=== PATIENT | male | born 1940 | race Caucasian/White ===

== ENCOUNTER 2017-02-04 07:19 | Day surgery (SDC) | payer MEDICARE, OTHER ==
--- NOTE | 2017-01-31 11:28 | HP ---
PATIENT: ANURAG ARBOLEDA MEDICAL RECORD: [id number] ACCOUNT: [id number] LOCATION:D.OPS : 40 ADMISSION DATE: 02/04/17 HISTORY AND PHYSICAL EXAMINATION ANURAG Singleton (76yo, M) ID# [id number]. Date/Time01/29/2017 01:[id number] 1940ervice Dept.NPP_[facility] ClinicProviderEDJOEY HILARIO MDInsuranceMed Primary[place] Insurance # : [id number] Referring Provider Name : YU MOSER Employer Name : RETIRED Med Secondary: FOR LIFE ( - MEDICARE SUPPLEMENT) Insurance # : [id number] Referring Provider Name : YU MOSER Employer Name : RETIRED Prescription: ESI1 - Member is eligible. Chief Complaint pulse generator end-of-life, Coronary artery disease, PVD - peripheral vascular disease s/p L art w int 09/19/15 s/p R popliteal endarterectomy 07/30/15 s/p PPM 12/21/07 s/p trach 06/09/03 s/p CABG 05/24/03 one year f/u and eval for gen change Patient's Care Team Referring Provider (): YU MOSER: [address] [place] [address], , Other: [facility]: [address] [address], , Patient's Pharmacies [facility] 590 (ERX): [address] [place] [id number], , Vitals BP:120/80 sitting R arm 01/29/2017 01:34 pmBP Cuff Size:adult 01/29/2017 01:34 pmHR:68,reg 01/29/2017 01:34 pmHt:5 ft 4 in 01/29/2017 01:35 pmWt:180 lbs 01/29/2017 01:35 pmNotes:no complaints except SOB, thinks the pulse generator change will fix him up 01/29/2017 01:35 pmBMI:30.9 01/29/2017 01:35 pmAllergies Reviewed Allergies NKDASome allergies listed in Documents: #[id number], #[id number] could not be added to this patient's chart. Please review these documents and add these allergies to the patient's chart manually as needed.Medications Reviewed Medications alfuzosin ER 10 mg tablet,extended release 24 hr Take 1 tablet(s) every day by oral route in the evening.12/29/16 filledMEDCOaspirin 81mg cgpzmtjo83/14/11 enteredCindy Brownatorvastatin 20 mg tablet Take 1 tablet(s) every day by oral route.12/19/16 filledMEDCOclopidogrel 75 mg tablet Take 1 tablet(s) every day by oral route in the morning.12/25/16 filledMEDCOdiclofenac sodium 75 mg tablet,delayed release Take 1 tablet(s) twice a day by oral route.07/25/15 enteredKathy Wilsonfurosemide 40 mg fafvfn34/24/17 filledMEDCOHYDROcodone 5 mg-acetaminophen 325 mg tablet Take 1 tablet(s) every 4-6 hours by oral route as needed.12/22/16 filledMEDCOHYDROcodone 7.5 mg-acetaminophen 325 mg ljyczb12/25/17 HISTORY AND PHYSICAL [id number] ANURAG ARBOLEDA filledMEDCOhydrOXYzine HCl 25 mg tablet Take 1 tablet(s) every day by oral route.03/27/11 enteredCindy Brownindapamide 1.25 mg yxpsku85/08/17 filledMEDCOIron (ferrous sulfate) 325 mg (65 mg iron) tablet Take 1 tablet(s) every day by oral route in the evening.01/17/16 enteredCarnicole Hightower-Con M10 mEq tablet,extended twuyvzh31/24/17 filledMEDCOlevothyroxine 50mcg rwvsywfu49/14/11 enteredCindy Brownlevothyroxine 50 mcg qtvbin01/23/17 filledMEDCOlosartan 100 mg eiylev58/08/17 filledMEDCOlosartan 50 mg /15/16 filledMEDCOmethylPREDNISolone 4 mg tablets in a dose pack01/06/17 filledMEDCOmetoprolol succinate ER 50 mg tablet,extended release 24 hr Take 1 tablet(s) every day by oral route.01/04/17 filledMEDCOmometasone 0.1 % topical cream11/27/16 filledMEDCOmultivitamin qd03/18/11 enteredShannon Karrnabumetone 500 mg cwykiq38/23/17 filledMEDCONexIUM 40 mg capsule,delayed release Take 1 capsule(s) every day by oral route.09/12/16 filledMEDCOOcuvite Eye + Multi07/25/15 enteredKathy Wilsonpramipexole 0.125 mg tablet Take 1 tablet(s) every day by oral route in the evening.01/17/16 enteredCarry Shirleypramipexole 0.25 mg gcykpd22/13/17 filledMEDCOtemazepam 15 mg capsule Take 1 capsule(s) every day by oral route at bedtime.12/29/16 filledMEDCO NIAGEN DIETARY SUPPLEMENT, FORSKOLIN DIETARY SUPPLEMENT Vaccines Reviewed Vaccines Some vaccines listed in Documents: #[id number], #[id number] could not be added to this patient's chart. Please review these documents and add these vaccines to the patient's chart manually as needed. 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 Please review these documents and add these problems to the patient's chart manually as needed. Family History Discussed Family History Mother- Coronary arteriosclerosis - previously recorded as CADFather- Coronary arteriosclerosis - previously recorded as CADSocial History Discussed Social History Cardiology Family history of heart disease?: Y Smoking Status: Former smoker Smoker (1 PPW) High Cholesterol: Y High blood pressure: Y Exercise level: Moderate HISTORY AND PHYSICAL [id number] ANURAG ARBOLEDA Overweight: Y Obese: N Diabetes: N General stress level: Low Alcohol intake: None Diet: Regular Occupation: retired Marital status: Advance directive: N Is blood transfusion acceptable in an emergency?: Y Surgical History Reviewed Surgical History Irrigation and debridement, infection - 12/07/2015 Other - 09/19/2015 - left arteriogram with intervention Vascular Surgery - 07/30/2015 - posterior approach R popliteal endarterectomy Other - 12/21/2007 - PPM placement Other - 06/09/2003 - tracheostomy placement CABG - 05/24/2003 Past Medical History Discussed Past Medical History Coronary Artery Disease: Y Heart Disease: Y High Blood Pressure: Y Hyperlipidemia: Y Hypertension: Y Joint Pain or Swelling: Y Notes: HIGH CHOLESTEROL Documents for Discussion N/A Screening None recorded. HPI Dyspnea Reported by patient. Quality: dyspnea; can't catch breath Severity: moderate Onset/Timing: daily Context: with activity Alleviating Factors: rest Aggravating Factors: activity Associated Symptoms: no chest pain; no palpitations; no orthopnea; no PND; no fever; no chills; no wheezing; no dietary indiscretion; no sputum production; no hemoptysis; no weight gain; no dyspepsia Peripheral Vascular Disease Reported by patient. Severity: not limiting Associated Symptoms: no weakness; no numbness; no paresthesias; no skin discoloration; no fever carotid artery disease ROS Patient reports exercise intolerance but reports no fever, no night sweats, no significant weight gain, and no significant weight loss. He reports shortness of breath when walking (up hill) but reports no chest pain, no arm pain on exertion, no HISTORY AND PHYSICAL [id number] ANURAG ARBOLEDA shortness of breath when lying down, no palpitations, and no known heart murmur. He reports no dry eyes, no irritation, and no vision roel nge. He reports no difficulty hearing and no ear pain. He reports no frequent nosebleeds and no nose/sinus problems. He reports no sore throat, no bleeding gums, no snoring, no dry mouth, no mouth ulcers, no oral abnormalities, and no teeth problems. He r e ports no cough, no wheezing, no shortness of breath, and no coughing up blood. He reports no abdominal pain, no vomiting, normal appetite, no diarrhea, not vomiting blood, no nausea, and no constipation. He reports no incontinence, no difficulty urinating , no hematuria, and no increased frequency. He reports no muscle aches, no muscle weakness, no arthralgias/joint pain, no back pain, and no swelling in the extremities. He reports no abnormal mole, no jaundice, and no rashes. He reports no loss of consciou s ness, no weakness, no numbness, no seizures, no dizziness, and no headaches. He reports no depression, no sleep disturbances, feeling safe in relationship, and no alcohol abuse. He reports no fatigue. He reports no swollen glands and no bruising. He repor ts no runny nose, no sinus pressure, no itching, no hives, and no frequent sneezing. ROS as noted in the HPI Physical Exam Patient is a 76-year-old male. Constitutional: General Appearance well nourished and developed and healthy-appearing. Level of Distress NAD. Ambulation ambulating normally. Cardiovascular: Apical Impulse not displaced or no thrill. Heart Auscultation normal s1 and s2; no murmurs, rubs, or gallops; and RRR. Arterial Pulses no abdominal aorta bruits, femoral bruits, or popliteal bruits; popliteal diminished (b) and dorsalis pedis not palpable (b); and 2+ bilateral, carotid 2+ bilateral, and femoral 2+ bilateral. Edema no edema or varicosities. Lungs: Repiratory Effort no dyspnea. Percussion no hyperresonance or dullness or flatness. Auscultation no wheezing, rhonchi, or rales / crackles and breathing sounds normal, good air movement, and CTA except as noted. Abdomen: Bowl Sounds normal. Inspection and Palpation no tenderness, guarding, faisal s, or rebound tenderness and soft and non-distended. Liver non-tender and no hepatomegaly. Spleen non-tender and no splenomegaly. Hernia none palpable. Ears, Nose, Throat: Hearing grossly normal hearing. Nose no external nose lesion. Lips, Teeth, and Gums no mouth or lip ulcers. Oropharynx: moist mucous membranes. Neurologic: Cranial Nerves grossly intact. Reflexes DTRs 2+ bilaterally throughout. Sensation grossly intact. Lymph Nodes: Lymph Nodes no cervical LAD, supraclavicular LAD, axillary LAD, or inguinal LAD. Eyes: Lids and Conjunctivae no discharge or pallor and non-injected. Pupils PERRLA. Cornea grossly intact. EOM EOMI. Lens clear. Sclerae non-icteric. Neck: Neck no masses, enlarged lymph nodes, or carotid bruits and supple and trachea midline. Thyroid no enlargement or nodules and non-tender. Skin: Inspection and Palpation no rash, lesions, ulcers, jaundice, or abnormal nevi. Assessment / Plan sick sinus syndrome pulse generator end-of-life HISTORY AND PHYSICAL [id number] ANURAG ARBOLEDA History of complete heart block 1. Pacemaker pulse generator failure T82.111A: Breakdown (mechanical) of cardiac pulse generator (battery), initial encounter 2. Complete atrioventricular block I44.2: Atrioventricular block, complete HEART BLOCKS: CARE INSTRUCTIONS Return to Office None recorded. MACARIO HILARIO MD at 1128 CC: [id number] DICTATION DATE: 01/29/17 1330 MUSIC PROFESSOR: DM 01/29/17 1534 PRE [facility] [address] [place] [address]
[~2017-02-04] VITALS: Ht 162.6 cm; Wt 85.4 kg
--- NOTE | ~2017-02-04 | OP ---
PATIENT NAME: ANURAG ARBOLEDA MEDICAL RECORD: [id number] :40 LOCATION:D.OPS ADMISSION DATE: SURGEON: MACARIO MESA MD DATE OF OPERATION: 02/04/2017 SURGEON: Macario Mesa MD. ANESTHESIA: General, Dr. Marcum. OPERATION PERFORMED: Pulse generator exchange. PREOPERATIVE DIAGNOSES: Pulse generator end of life, complete heart block. POSTOPERATIVE DIAGNOSES: Pulse generator end of life, complete heart block. INDICATION FOR OPERATION: Complete heart block, pulse generator end of life. FINDINGS OF THE OPERATION: The explanted generator was Medtronic model number VEDR01, serial number [id number]. Newly implanted pulse generator: Medtronic Adapta [id number], serial number [id number]. LEAD ANALYSIS: Atrial lead threshold 0.5 volts, resistance 359 ohms. P-wave 2.4, ventricular lead threshold 0.7 volts, resistance 543 ohms, R-wave none. ESTIMATED BLOOD LOSS: Less than 5 cc. DESCRIPTION OF PROCEDURE: After informed consent, adequate preoperative medication and evaluation, the patient was brought to the operating room, placed on the table in the supine position. After induction of general anesthesia and application of appropriate monitoring devices, the left chest was prepped and draped in a sterile field, utilizing Betadine scrub, alcohol, and Betadine solution. A Betadine-impregnated drape was also used, 1% lidocaine was infiltrated in the previous incision as well as in the pulse generator pocket. An incision was made, carried down to the pocket. The pocket was incised and the device was removed. The pacemaker pocket was revised medially and inferiorly. Hemostasis was assured. The leads were then removed from the explanted device and placed in the new device. Pacemaker fired and sensed appropriately. The device was tested. The device was placed back in the pocket. The pocket was irrigated. Instrument count and sponge count were correct times 2. Pocket was closed in layers utilizing 3-0 Vicryl on deep subcutaneous tissue, 3-0 Vicryl on superficial subcutaneous tissues. Skin approximated with 5-0 subcuticular Monocryl. Sterile dressings were applied. The patient tolerated the procedure well and was transferred to postanesthesia recovery in satisfactory condition. TRANSINT:[id number] Voice Confirmation ID: [id number] DOCUMENT ID: [id number] OPERATIVE REPORT [id number] ANURAG ARBOLEDA EDWARD MD CC: [id number] DICTATION DATE: 02/04/17 1217 DIRECTOR ORACLE DATABASE: 02/04/179 [facility] 02/04/17 [id number] [place] [address]
[~2017-02-04 07:19] MED LIST: ASPIRIN81 MG PO; ATARAX 25 MG TA25 MG PO; FERROUS SULFAT325 MG PO; FIBER GUMMIES PO; FLOMAX0.4 MG PO; FORSKOLIN PO; HYDROCODON-ACE1 EAC7 PO; HYDROCODONE-APA1 TAB PO; KLOR-CON 1010 MEQ PO; LASIX40 MG PO; LIPITOR20 MG PO; MIRAPEX0.125 MG PO; MIRAPEX0.75 MG; MULTIPLE VITAMI1 TA1 PO; NEXIUM40 MG PO; OCUVITE TABLET1 TA1 PO; PLAVIX75 MG PO; RESTORIL15 MG PO; SYNTHROID50 MCG PO; TOPROL XL50 MG PO; UROXATRAL10 MG PO; VOLTAREN75 MG PO; [UNRECOGNIZED DRUG - OTHER] PO; [UNRECOGNIZED DRUG - OTHER] PO
[2017-02-04 08:13] LABS: HEMATOCRIT 45.6 % (42.0-54.0); HEMOGLOBIN 15.3 g/dL (13.5-17.5); MCH 32.4 pg (26.0-34.0); MCHC 33.6 g/dL (31.0-37.0); MCV 96.6 fL (80.0-100.0); MEAN PLATELET VOLUME 9.8 fL (7.4-10.4); RBC 4.72 10x6/uL (4.20-6.10); WBC 6.5 10x3/uL (4.8-10.8)
[2017-02-04] MEDS ORDERED: RELAFEN500 MG PO (08:29)
[2017-02-04] MEDS ORDERED: VITAMIN B-122500 MCG PO (08:30)
[2017-02-04] MEDS ORDERED: COZAAR100 MG PO (08:31)
[2017-02-04] MEDS ORDERED: LOZOL1.25 MG PO (08:32)
[2017-02-04] MEDS ORDERED: HYDROCODON-ACE1 EAC7 PO (08:34)
[2017-02-04 08:37] LABS: ANION GAP 12.4 mmol/L (8-16); CALCIUM 9.3 mg/dL (8.5-10.1); CARBON DIOXIDE 29.5 mmol/L (21.0-32.0); CREATININE - SERUM 1.9 mg/dL (0.6-1.3); POTASSIUM - SERUM 3.9 mmol/L (3.5-5.1)
[2017-02-04] MEDS ORDERED: K-DUR20 MEQ PO (08:40)
[2017-02-04] MEDS ORDERED: LASIX40 MG PO (08:41)
[2017-02-04] MEDS ORDERED: POTASSIUM CHLO10 ME1 PO (08:42)
[2017-02-04 08:59] VITALS: BP 139/84; Ht 162.6 cm; Wt 85.4 kg
[2017-02-04 09:06] LABS: APTT 27.7 SECONDS (22.8-39.4); INR 1.01 (0.85-1.17); PROTIME 13.2 SECONDS (11.6-15.0)
== END 2017-02-04 13:55 | disposition home or self-care (01) ==
LOC: D.OPS 07:19
PROVIDERS: Internal Medicine Cardiovascular Disease
DX: Z45.010 Encounter for checking and testing of cardiac pacemaker pulse generator [battery] (principal); I44.2 Atrioventricular block, complete

== ENCOUNTER 2017-02-04 21:31 | Emergency (ER) | payer MEDICARE, OTHER ==
[2017-02-04 08:59] VITALS: BMI 32.3
[~2017-02-04 21:31] MED LIST changes: +COZAAR100 MG PO; +K-DUR20 MEQ PO; +LOZOL1.25 MG PO; +POTASSIUM CHLO10 ME1 PO; +RELAFEN500 MG PO; +VITAMIN B-122500 MCG PO
[2017-02-04 23:35] LABS: BASOPHILS 0.3 % (0-2); EOSINOPHILS 1.6 % (0-7); HEMATOCRIT 42.5 % (42.0-54.0); HEMOGLOBIN 14.1 g/dL (13.5-17.5); IMMATURE GRANULOCYTES 0.9 % (0-5); LYMPHOCYTES 11.4 % (15-50); MCH 32.1 pg (26.0-34.0); MCHC 33.2 g/dL (31.0-37.0); MCV 96.8 fL (80.0-100.0); MEAN PLATELET VOLUME 9.8 fL (7.4-10.4); MONOCYTES 8.5 % (2-11); NEUTROPHILS 77.3 % (40-80); PLATELET COUNT 165 10x3/uL (130-400); RBC 4.39 10x6/uL (4.20-6.10); WBC 6.9 10x3/uL (4.8-10.8)
[2017-02-04 23:44] LABS: ALBUMIN 3.6 g/dL (3.4-5.0); ANION GAP 11.1 mmol/L (8-16); BILIRUBIN - TOTAL 0.3 mg/dL (0.2-1.3); CALCIUM 8.7 mg/dL (8.5-10.1); CARBON DIOXIDE 29.3 mmol/L (21.0-32.0); CREATININE - SERUM 1.8 mg/dL (0.6-1.3); POTASSIUM - SERUM 4.4 mmol/L (3.5-5.1); PROTEIN - SERUM 6.6 g/dL (6.4-8.2)
== END 2017-02-05 00:35 | disposition home or self-care (01) ==
LOC: D.ER 21:31
PROVIDERS: Emergency Medicine
DX: L76.22 Postprocedural hemorrhage of skin and subcutaneous tissue following other procedure (principal); I10 Essential (primary) hypertension; E03.9 Hypothyroidism, unspecified; E78.5 Hyperlipidemia, unspecified

== ENCOUNTER 2017-12-25 13:14 | Emergency (ER) | payer MEDICARE, OTHER | END 2017-12-25 15:09 | disposition home or self-care (01) | LOC: D.ER 13:14 | DX: L03.011 Cellulitis of right finger (principal); I10 Essential (primary) hypertension; E03.9 Hypothyroidism, unspecified ==

== ENCOUNTER → 2018-12-13 12:51 | Outpatient (CLI) | payer MEDICARE, OTHER ==
--- NOTE | ~2018-12-13 | EC ---
PATIENT:ANURAG ARBOLEDA DATE OF SERVICE: 12/13/18 SEX: M MEDICAL RECORD: [id number] DATE OF : 40 LOCATION:[facility] AGE OF PATIENT: 78 ADMISSION DATE: 12/13/18 REFERRING PHYSICIAN: INTERPRETING PHYSICIAN: SOHA MICHEL MD ECHOCARDIOGRAM REPORT ECHO CHARGES 4 ECHO COMPLETE Date: 12/13/18 CLINICAL DIAGNOSIS: CAD ECHOCARDIOGRAPHIC MEASUREMENTS (adult normal given) AC root (d.<3.7cm) 3.4 cm LV Septum d (<1.2 cm> 1.6 cm Valve Excursion 1.6 cm LV Septum (systole) 1.8 cm Left Atria (s.<4.0cm> 4.0 cm LVPW d(<1.2cm) 1.5 cm RV (d.<2.3cm) 4.2 cm LVPW (sytole) 1.8 cm LV diastole(<5.6CM) 5.8 cm MV E-F(>70mm/sec) cm LV systole 4.8 cm LVOT Diameter 1.6 cm MV exc.(>10mm) 1.2 cm Est.ejection fraction (50-75%) % DOPPLER: LVIT cm/sec A 92.0 cm/sec E 65.0 cm/sec LA cm/sec RVSP 37 mmHg LVOT 75 cm/sec AOP1/2T m/s Asc. Ao 116 cm/sec RVOT 56 cm/sec RA cm/sec PA 160 cm/sec AV Gradient Peak 5.40 mmHg AV Mean 3.10 mmHg AV Area 1.4 cm MV Gradient Peak 3.62 mmHg MV Mean 1.30 mmHg MV Area cm COMMENTS: [employer] Machine Operator: Julian WATERS Animal Chiropractor: 1 Dr. Michel TAPE# PACS Pericardial Effusion N DATE OF SERVICE: 12/13/2018 ECHOCARDIOGRAM FINDINGS: 1. Left ventricular chamber size is within normal limits. Left ventricular systolic function is normal. Overall ejection fraction estimated at 55% to 60%. 2. Left atrium, right atrium, and right ventricle chamber sizes are upper limits of normal to mildly dilated left atrium measures 4.0 cm. 3. Valvular structures have normal structure and motion. ECHOCARDIOGRAM REPORT [id number] ANURAG ARBOLEDA 4. Doppler interrogation reveals mild mitral regurgitation, mild tricuspid regurgitation, no other valvular insufficiency or stenosis. 5. No evidence of pericardial effusion or left ventricular thrombus. TRANSINT:[id number] Voice Confirmation ID: [id number] DOCUMENT ID: [id number] SOHA MICHEL MD CC: [id number] DICTATION DATE: 12/13/18 1605 MANAGER TRAFFIC: 12/13/18 1824 [facility] [address] [id number]
== END | disposition home or self-care (01) ==
LOC: D.HCCARDIO 12:51
PROVIDERS: ATTEND Internal Medicine Interventional Cardiology
DX: I25.10 Atherosclerotic heart disease of native coronary artery without angina pectoris (principal)